=== PATIENT | female | born 1980 | race Caucasian/White ===

== ENCOUNTER 2018-04-17 04:04 | Emergency (ER) | payer OTHER ==
[2018-04-17] MEDS ORDERED: KETOROLAC 30 MG/ML INJ ONE (05:13)
[2018-04-17 05:37] LABS: Urine Bacteria <20 /HPF (<20); Urine Culture Reflex Order NOT NEEDED
[2018-04-17 05:39] LABS: Urine Blood 2+ (NEG); Urine Glucose NEGATIVE (NEG); Urine Protein NEGATIVE (NEG)
--- NOTE | 2018-04-17 06:39 | ER ---
Nurse's Notes [facility] Name: Amy Rodriguez Age: 37 yrs Sex: Female : 1980 Arrival Date: 04/17/2018 Time: 04:05 Bed 19 Private MD: Diagnosis: Cystitis Presentation: 04/17 04:23 Presenting complaint: Patient states: she was diagnosed with a UTI 2 days ago and was aa1 started on Macrobid but she is not feeling any better. C/O mid back pain and suprapubic pressure. Transition of care: patient was not received from another setting of care. Onset of symptoms was April 14, 2018. Risk Assessment: Do you want to hurt yourself or someone else? Patient reports no desire to harm self or others. Initial Sepsis Screen: Does the patient meet any 2 criteria? No. Patient's initial sepsis screen is negative. Does the patient have a suspected source of infection? No. Patient's initial sepsis screen is negative. Care prior to arrival: None. 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 - Social history:: Smoking status: Patient/guardian denies using tobacco. - Ebola Screening: : No symptoms or risks identified at this time. Screenin:26 Abuse screen: Denies threats or abuse. Denies injuries from another. Nutritional aa1 screening: No deficits noted. Tuberculosis screening: No symptoms or risk factors identified. Fall Risk None identified. Assessment: 04:26 General: Appears in no apparent distress. comfortable, Behavior is calm, cooperative, aa1 appropriate for age. Pain: Complains of pain in mid back area Pain currently is 4 out of 10 on a pain scale. Quality of pain is described as aching. Neuro: Level of Consciousness is awake, alert, obeys commands, Oriented to person, place, time, situation, Moves all extremities. Full function Gait is steady. Respiratory: Airway is patent Respiratory effort is even, unlabored, Respiratory pattern is regular, symmetrical. GI: No signs and/or symptoms were reported involving the gastrointestinal system. : Reports pain in suprapubic area. EENT: No signs and/or symptoms were reported regarding the EENT system. Derm: Skin is intact, is healthy with good turgor, Skin is pink, warm \T\ dry. Musculoskeletal: Circulation, motion, and sensation intact. Capillary refill < 3 seconds. 05:13 Reassessment: Patient appears in no apparent distress at this time. Patient and/or aa1 family updated on plan of care and expected duration. Pain level reassessed. Patient is alert, oriented x 3, equal unlabored respirations, skin warm/dry/pink. Awaiting CT results. 06:45 Reassessment: Patient appears in no apparent distress at this time. Patient is alert, aa1 oriented x 3, equal unlabored respirations, skin warm/dry/pink. Discussed d/c \T\ f/u instructions with pt; denies questions or concerns at this time Patient states feeling better. Vital Signs: 04:25 BP 108 / 69; Pulse 98; Resp 16; Temp 99.1; Pulse Ox 100% on R/A; Weight 74.84 kg; aa1 Height 5 ft. 4 in. (162.56 cm); Pain 4/10; 05:09 BP 111 / 76; Pulse 86; Resp 16; Pulse Ox 97% on R/A; aa1 06:45 BP 113 / 69; Pulse 88; Resp 16; Temp 98.9; Pulse Ox 98% on R/A; Pain 0/10; aa1 04:25 Body Mass Index 28.32 (74.84 kg, 162.56 cm) aa1 ED Course: 04:05 Patient arrived in ED. al2 04:14 Cesar Matthews MD is Attending Physician. gs 04:23 Liliana Mcleod RN is Primary Nurse. aa1 04:24 Triage completed. aa1 04:25 Arm band placed on right wrist. aa1 04:26 Patient has correct armband on for positive identification. Bed in low position. Call aa1 light in reach. Pulse ox on. NIBP on. 04:26 Urine collected: clean catch specimen. aa1 05:06 CT completed. Patient tolerated procedure well. Patient moved to CT via wheelchair. eh Patient moved back from CT. 06:25 CT Stone Protocol In Process Unspecified. EDMS 06:45 No provider procedures requiring assistance completed. Patient did not have IV access aa1 during this emergency room visit. Administered Medications: 05:08 Drug: TORadol 30 mg Route: IM; Site: left deltoid; aa1 06:44 Follow up: Response: No adverse reaction; Pain is decreased aa1 Outcome: 06:39 Discharge ordered by . 06:45 Discharged to home ambulatory. aa1 06:45 Condition: good 06:45 Discharge instructions given to patient, Instructed on discharge instructions, follow up and referral plans. medication usage, Demonstrated understanding of instructions, follow-up care, medications, Prescriptions given X 1. 06:46 Patient left the ED. aa1 Signatures: Dispatcher [employer] Liliana Sanchez, RN RN aa1 Jasper Galaviz Gregory, MD MD gs Love, Angelica al2
--- NOTE | 2018-04-17 06:40 | EDPHYS ---
Physician Documentation [facility] Name: Amy Rodriguez Age: 37 yrs Sex: Female : 1980 Arrival Date: 04/17/2018 Time: 04:05 Bed 19 Private MD: ED Physician Cesar Matthews HPI: 04/17 06:13 This 37 yrs old Female presents to ER via Ambulatory with complaints of gs Urinary Problem. 06:13 The patient complains of pain in the left low back and left mid back. The pain radiates gs to the right lower quadrant. Onset: The symptoms/episode began/occurred 3 day(s) ago. Associated signs and symptoms: Pertinent positives: dysuria, Pertinent negatives: fever. Severity of pain: At its worst the pain was moderate in the emergency department the pain has improved mildly. The patient has experienced similar episodes in the past, a few times. 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 - Social history:: Smoking status: Patient/guardian denies using tobacco. - Ebola Screening: : No symptoms or risks identified at this time. ROS: 06:13 All other systems are negative. gs Exam: 06:13 Head/Face: Normocephalic, atraumatic. Eyes: Pupils equal round and reactive to light, gs extra-ocular motions intact. Lids and lashes normal. Conjunctiva and sclera are non-icteric and not injected. Cornea within normal limits. Periorbital areas with no swelling, redness, or edema. ENT: Nares patent. No nasal discharge, no septal abnormalities noted. Tympanic membranes are normal and external auditory canals are clear. Oropharynx with no redness, swelling, or masses, exudates, or evidence of obstruction, uvula midline. Mucous membranes moist. Neck: Trachea midline, no thyromegaly or masses palpated, and no cervical lymphadenopathy. Supple, full range of motion without nuchal rigidity, or vertebral point tenderness. No Meningismus. Chest/axilla: Normal chest wall appearance and motion. Nontender with no deformity. No lesions are appreciated. Cardiovascular: Regular rate and rhythm with a normal S1 and S2. No gallops, murmurs, or rubs. Normal PMI, no JVD. No pulse deficits. Respiratory: Lungs have equal breath sounds bilaterally, clear to auscultation and percussion. No rales, rhonchi or wheezes noted. No increased work of breathing, no retractions or nasal flaring. Abdomen/GI: Soft, non-tender, with normal bowel sounds. No distension or tympany. No guarding or rebound. No evidence of tenderness throughout. Skin: Warm, dry with normal turgor. Normal color with no rashes, no lesions, and no evidence of cellulitis. MS/ Extremity: Pulses equal, no cyanosis. Neurovascular intact. Full, normal range of motion. Neuro: Awake and alert, GCS 15, oriented to person, place, time, and situation. Cranial nerves II-XII grossly intact. Motor strength 5/5 in all extremities. Sensory grossly intact. Cerebellar exam normal. Normal gait. 06:13 Constitutional: The patient appears alert, awake. 06:13 Back: CVA tenderness, that is mild, is noted on the left. Vital Signs: 04:25 BP 108 / 69; Pulse 98; Resp 16; Temp 99.1; Pulse Ox 100% on R/A; Weight 74.84 kg; aa1 Height 5 ft. 4 in. (162.56 cm); Pain 4/10; 05:09 BP 111 / 76; Pulse 86; Resp 16; Pulse Ox 97% on R/A; aa1 06:45 BP 113 / 69; Pulse 88; Resp 16; Temp 98.9; Pulse Ox 98% on R/A; Pain 0/10; aa1 04:25 Body Mass Index 28.32 (74.84 kg, 162.56 cm) aa1 MDM: 04:21 Patient medically screened. 06:13 Differential diagnosis: nephrolithiasis, pyelonephritis, UTI. Data reviewed: vital gs signs, nurses notes. Response to treatment: the patient's symptoms have markedly improved after treatment, and as a result, I will discharge patient. 06:37 Counseling: I had a detailed discussion with the patient and/or guardian regarding: the gs historical points, exam findings, and any diagnostic results supporting the discharge/admit diagnosis, lab results, radiology results, the need for outpatient follow up. 06:37 ED course: no vomiting no ab tenderness discussed with gabriela if no obstruction malrotation physiologic. 04/17 04:22 Order name: Urine Microscopic Only 04/17 04:39 Order name: Urine Dipstick--Ancillary (enter results) 4 04/17 04:39 Order name: Urine --Ancillary (enter results) [facility] 04/17 05:37 Order name: Urine Microscopic Only; Complete Time: 06:25 EDMS 04/17 05:39 Order name: Urine --Ancillary; Complete Time: 06:25 EDMS 04/17 05:39 Order name: Urine Dipstick-Ancillary; Complete Time: 06:25 EDOH 04/17 04:22 Order name: Urine Test (obtain specimen); Complete Time: 05:13 04/17 04:22 Order name: Urine Dipstick-Ancillary (obtain specimen); Complete Time: 05:13 04/17 04:22 Order name: CT Stone Protocol gs Administered Medications: 05:08 Drug: TORadol 30 mg Route: IM; Site: left deltoid; aa1 06:44 Follow up: Response: No adverse reaction; Pain is decreased aa1 Disposition: 04/17/18 06:39 Discharged to Home. Impression: Cystitis. - Condition is Stable. - Discharge Instructions: Urinary Tract Infection, Adult. - Prescriptions for Miralax 17 gram/dose Oral - take 1 packet by ORAL route once daily dilute powder in 8 ounces of water or juice; 1 bottle. - Medication Reconciliation Form, Thank You Letter, Antibiotic Education, Prescription Opioid Use form. - Follow up: Private Physician; When: 2 - 3 days; Reason: Re-evaluation by your physician. Signatures: [facility] Liliana Mcleod RN RN aa1 Cesar Matthews MD MD Corrections: (The following items were deleted from the chart) 06:46 06:39 04/17/2018 06:39 Discharged to Home. Impression: Cystitis. Condition is Stable. aa1 Forms are Medication Reconciliation Form, Thank You Letter, Antibiotic Education, Prescription Opioid Use. Follow up: Private Physician; When: 2 - 3 days; Reason: Re-evaluation by your physician. gs
[2018-04-17 07:05] VITALS: BP 113/69; TEMP 98.9; O2SAT 98
--- NOTE | 2018-04-17 08:28 | RAD REPORT ---
EXAM DESCRIPTION: CT - Stone Protocol - 04/17/2018 6:48 am CLINICAL HISTORY: Abdominal pain, history of recent UTI diagnosis with no symptom improvement on med ication, patient indicates suprapubic abdominal pain and back pain A preliminary report was provided at the time of the study and reviewed prior to final report. COMPARISON: CT imaging August 2011 TECHNIQUE: Axial 5 mm thick images were obtained without oral or IV contrast. The [id number] span s the entirety of the system partially obscuring uppermost abdomen and lung bases. All CT scans are performed using dose optimization technique as appropriate and may include automated exposure control or mA/KV adjustment according to patient size. FINDINGS: No hydronephrosis is present and no obstructing or nonobstructing calculi. No suspicious r enal masses. Isodense masses and pyelonephritis are not excluded on a stone protocol CT scan. No urin abel bladder suspicious finding. No uterus or right ovarian finding. At the left ovary/left adnexa there is a 4.5 centimeter heterogen eous mass. Attenuation is greater than fluid. Most commonly this would be a complex or hemorrhagic ov chad cyst. No associated free fluid. A solid left ovarian mass is not excluded. Follow-up pelvic ult rasound would be recommended for further characterization. No fallopian tube dilatation. Imaged portions of the liver, spleen and pancreas show no suspicious findings on non-contrast imaging . No gallbladder or biliary tree abnormality identified. No significant adrenal finding. No acute bowel findings. 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 No associated acute c omponent seen. Colonic stool volume is moderate. No hernia, mass or bulky lymphadenopathy noted. No free air, free fluid or inflammatory stranding. No significant bony abnormality. In IMPRESSION: Approximately 4.5 centimeter heterogeneous left ovarian or left adnexal mass. This is mo st commonly a hemorrhagic or complex ovarian cyst. Follow-up pelvic ultrasound would be recommended for further characterization. Congenital bowel malrotation variant. No acute component is seen though the colon does show moderatel y large stool volume throughout. No acute finding identifiable. Isodense masses and pyelonephritis are not excluded on stone protocol technique.
== END 2018-04-17 06:46 | disposition home or self-care (01) ==
LOC: ER 04:04
DX: N30.90 Cystitis, unspecified without hematuria (principal); Z98.82 Breast implant status
CPT/HCPCS: 74176; 76377; 81003; 81015; 81025; 96372; 99284

== ENCOUNTER 2020-01-24 07:05 | Emergency (ER) | payer OTHER ==
--- OUTSIDE RECORDS SUMMARY | 2020-01-24 07:06 | XMS REPORT | Continuity of Care Document ---
:1980 Author Organization [facility] t Address [address] [place] [address] Care Team Providers Name Role Phone Rao JANG Attending Clinician Elvin Gaitan MD Attending Clinician Problems This patient has no known problems. Allergies, Adverse Reactions, Alerts This patient has no known allergies or adverse reactions. Medications This patient has no known medications. Procedures This patient has no known procedures. Encounters Start End Encounter Admission Attending Care Care Encounter Source Date/Time Date/Time Type Type Clinicians Facility Department ID 2019-10-28 2019-10-28 Emergency River Yeh [facility] [id number] 00:12:38 01:52:00 Forrest Gaitan [place] [id number] [place] [id number] [place] [id number] Results This patient has no known results.
--- OUTSIDE RECORDS SUMMARY | 2020-01-24 07:07 | XMS REPORT | Summary of Care ---
:1980 Author Organization [facility] Address [address] [place] [id number] Care Team Providers Name Role Phone Pearl Gonzalez Primary Care Provider Reason for Referral Radiology Services (STAT) Status Reason Specialty Diagnoses / Referred By Referred To Procedures Contact Contact New Request Diagnostic Diagnoses Suspected Covid-19 Virus Infection Rao, Radiology Procedures XR CHEST 1 VW COVID XR CHEST 1 VW GRUPO HolmanP [address] [address] Reason for Visit Reason Comments Cough Fever Auth/Cert Status Reason Specialty Diagnoses / Referred By Referred To Procedures Contact Contact Emergency Medicine [facility] Em ergency Dept [address] [place] [phone] Fax: Encounter Details Date Type Department Care Team Description 10/28/2019 Emergency [facility]gency [place] Yeh, TIRE MECHANIC [address] [id number] Upper respiratory tract infection, unspe cified type (Primary Dx); Department Forrest Gaitan MD [address] [phone] Cough; [address] [place] [address] Dr banda Suspected Covid-19 Virus Inf ection; [place] [address] Close Exposure to Covid-19 V irus [phone] Allergies Active Allergy Reactions Severity Noted Date Comments Hydrocodone Itching 10/28/2019 documented as of this encounter (statuses as of 10/28/2019) Medications No known medicationsdocumented as of this encounter (statuses as of 10/28/2019) Active Problems No known active problemsdocumented as of this encounter (statuses as of 10/28/2019) Social History Tobacco Use Types Packs/Day Years Used Date Never Assessed Sex Assigned at Date Recorded Not on file Job Start Date Occupation Industry Not on file Not on file Not on file Travel History Travel Start Travel End No recent travel history available. COVID-19 Exposure Response Date Recorded In the last month, have you been in contact with Yes 10/28/2019 12:20 AM CDT someone who was confirmed or suspected to have Coronavirus / COVID-19? documented as of this encounter Last Filed Vital Signs Vital Sign Reading Time Taken Comments Blood Pressure 120/86 10/28/2019 1:00 AM CDT Pulse 95 10/28/2019 1:00 AM CDT Temperature 37.3 C (99.1 F) 10/28/2019 12:22 AM CDT Respiratory Rate 20 10/28/2019 1:00 AM CDT Oxygen Saturation 99% 10/28/2019 1:00 AM CDT Inhaled Oxygen Concentration - - Weight 77.1 kg (170 lb) 10/28/2019 12:21 AM CDT Height 162.6 cm (5' 4") 10/28/2019 12:21 AM CDT Body Mass Index 29.18 10/28/2019 12:21 AM CDT documented in this encounter Discharge Instructions Forrest Bar MD - 10/28/2019DIAGNOSIS 1. UPPER RESPIRATORY INFECTION. COVID TEST IS NEGATIVE NO LIFE-THREATENING FINDINGS ON TODAY'S EXAM. PROCEDURES IN THE ER TODAY: NONE MEDICATIONS ADMINISTERED IN THE ER TODAY: NONE YOUR PRESCRIPTIONS AND [id number] MEDICATION RECOMMENDATIONS: NO NEW MEDICATIONS SPECIAL CARE INSTRUCTIONS: SEE ATTACHMENTS FOLLOW-UP RECOMMENDATIONS: RECOMMEND FOLLOW-UP WITH A PRIMARY CARE PROVIDER IN A WEEK, ESPECIALLY IF NO IMPROVEMENT IN SYMPTOMS. TO FOLLOW-UP WITHIN THE [facility], TRY THESE OPTIONS (CLINIC APPOINTMENTS AVAILABLE ON [id number] BASIS): 1. SCHEDULE AN APPOINTMENT ONLINE AT [email or web address][email or web address] 2. OR CALL THE [facility] ACCESS C[facility] AT OR 3. OR CALL YOUR [facility] PHYSICIAN'S OFFICE DIRECTLY IF YOU ARE ALREADY AN ESTABLISHED [facility] PATIENT. RETURN TO ER FOR WORSENING OF SYMPTOMS. AttachmentsThe following attachments cannot be sent through Care Everywhere.URI, Viral, No Abx (Adult) (Angolan)documented in this encounter Plan of Treatment Name Type Priority Associated Diagnoses Date/Ti me XR CHEST 1 VW COVID IMAGING STAT Suspected Covid-19 Vi rian 10/28/2019 1:07 AM CDT Infection Name Type Priority Associated Diagnoses Order S chedule POCT TEST LAB [facility] Suspected Covid-19 Vi rian ONCE for 1 Occurrences Infection starting 2019 until 10/28/2019 Health Maintenance Due Date Last Done Comments DTaP,Tdap,and Td Vaccines ( - 1989 Tdap) Depression Screening 1990 PAP SMEAR 11/12/1999 Breast Cancer Screening 2018 (MAMMOGRAM) INFLUENZA VACCINE (Season Ended) 2020 PNEUMOCOCCAL 0-64 YEARS COMBINED Aged Out No longer eligible based on SERIES patient's age to complete this topic documented as of this encounter Procedures Procedure Name Priority Date/Time Associated Diagnosis Comme nts XR CHEST 1 VW COVID STAT 10/28/2019 1:07 AM CDT Suspected Covid-19 Virus Infection Procedure Note - Crispin Lazaro nt Results Inft User - 10/28/2019 1:42 AM CDT PROCEDURE: CHEST, SINGLE VIEW CLINICAL INDICATION: 38 year s Female presenting with covid 19 symptoms COMPARISON: Chest radiograph s None FINDINGS: Lungs: The lungs are clear. No focal consolidation, pleural effusion, or pneumothorax. Mediastinum: The cardiomedia stinal silhouette is normal in size. Osseous structures: No acute bony abnormality. IMPRESSION No acute intrathoracic abnor mality, specifically no radiographic findings to suggest COVID-19 pneumoni a. Disclaimer: Generally, the f indings on chest imaging in COVID-19 are not specific, and overlap with o ther infections, including influenza, H1N1, SARS and MERS. According to the Centers for Disease Control (CDC) and recent statement of the [employer], viral testing remains the only specific method of diagnosis. Confirm ation with the viral test is required, even if radiologic findings are sugg estive of COVID-[address]. Preliminary Report Dictated by Resident: Fco Bustos Ikwuagwu COVID-19 (ID NOW STAT 10/28/2019 12:34 AM Suspected Covid-1 9 Results for this RAPID TESTING) CDT Virus Infection procedure are in the results section. ASSIGNMENT OF Routine 10/28/2019 12:12 AM BENEFITS CDT NOTICE OF PRIVACY Routine 10/28/2019 12:12 AM PRACTICES CDT CONSENT/REFUSAL FOR Routine 10/28/2019 12:12 AM DIAGNOSIS AND CDT TREATMENT documented in this encounter Results COVID-19 (ID NOW RAPID TESTING) (10/28/2019 12:34 AM CDT) SARS-CoV-2 Rapid ID Not Detected Not Detected [facility] Specimen Swab - NASOPHARYNGEAL SWAB Narrative Performed At [facility] COVID-19 Assay is an isothermal nucleic [facility] acid amplification test intended for the qualitative detection of nucleic acid from SARS-CoV-2 viral RNA in nasopharyngeal (LABORER MINE) specimens. It is used under Emergency Use Authorization (EUA) by FDA. The limit of detection (LOD) of the assay is 125 Genome Equivalents/mL. A positive result is indicative of the presence of SARS-CoV-2 RNA. Clinical correlation with patient history and other diagnostic information is necessary to determine patient infection status. A negative (Not Detected) result does not preclude SARS-CoV-2 infection. In patients with clinical symptoms and other tests that are consistent with SARS-CoV-2 infection, negative results should be treated as presumptive negative and a new specimen should be tested with alternative PCR molecular test. Invalid: Please collect a new specimen for repeat patient testing if clinically indicated. Performing Organization Address City/State/Zipcode Phone Number [facility] CLIA: [id number], [address] [place], [place] [address] documented in this encounter Visit Diagnoses Diagnosis Upper respiratory tract infection, unspe cified type - Primary Cough Suspected Covid-19 Virus Infection Close Exposure to Covid-19 Virus documented in this encounter documented as of this encounter
[2020-01-24] MEDS ORDERED: LIDOCAINE 4% PATCH ONE (07:39)
[2020-01-24] MEDS ORDERED: KETOROLAC 30 MG/ML INJ ONE (07:39)
--- NOTE | 2020-01-24 08:49 | EDPHYS ---
Physician Documentation [facility] Name: Amy Rodriguez Age: 39 yrs Sex: Female : 1980 Arrival Date: 01/24/2020 Time: 07:06 Bed 5 Private MD: REGGIE Physician Zeke Cordero HPI: 01/23 07:42 This 39 yrs old Female presents to ER via Ambulatory with complaints of Back pm1 Pain. 07:42 The patient presents with pain that is acute. The symptoms are located in the low back. pm1 Onset: The symptoms/episode began/occurred yesterday. The pain radiates to the right leg and left leg. Associated signs and symptoms: Pertinent negatives: abdominal pain, chest pain, fever, headache, vomiting, weakness. The problem was sustained standing up after sleeping on the couch. Modifying factors: The patient symptoms are alleviated by remaining still, the patient symptoms are aggravated by movement. Severity of symptoms: in the emergency department the symptoms are actually worse. The patient has experienced a previous episode, approximately 2 months ago, and the symptoms today are exactly the same, improved with some help with a PT friend. Pain resolved for the past 1 month but returned yesterday. The patient has not recently seen a physician. Historical: - Allergies: 07:14 No Known Allergies; hb - Home Meds: 07:14 Macrobid Oral [Active]; hb - PSHx: 07:14 ; breast augmentation; Tubal ligation; hb - Immunization history:: Adult Immunizations up to date. - Social history:: Smoking status: Patient denies any tobacco usage or history of. ROS: 07:45 Constitutional: Negative for fever, chills, and weight loss, Neck: Negative for injury, pm1 pain, and swelling, Cardiovascular: Negative for chest pain, palpitations, and edema, Respiratory: Negative for shortness of breath, cough, wheezing, and pleuritic chest pain, Abdomen/GI: Negative for abdominal pain, nausea, vomiting, diarrhea, and constipation. 07:45 : Negative for injury, bleeding, discharge, and swelling, MS/Extremity: Negative for injury and deformity, Skin: Negative for injury, rash, and discoloration, Neuro: Negative for headache, weakness, numbness, tingling, and seizure. 07:45 Back: Positive for pain with movement, of the low back area. Exam: 07:45 Constitutional: This is a well developed, well nourished patient who is awake, alert, pm1 and in no acute distress. Head/Face: Normocephalic, atraumatic. 07:45 Skin: Warm, dry with normal turgor. Normal color with no rashes, no lesions, and no evidence of cellulitis. MS/ Extremity: Pulses equal, no cyanosis. Neurovascular intact. Full, normal range of motion. 07:45 Cardiovascular: Exam negative for acute changes, Rate: normal, Rhythm: regular, Pulses: no pulse deficits are appreciated. 07:45 Respiratory: Exam negative for acute changes, respiratory distress, shortness of breath. 07:45 Abdomen/GI: Exam negative for acute changes, Inspection: abdomen appears normal, Palpation: abdomen is soft and non-tender, in all quadrants. 07:45 Back: normal spinal alignment noted, vertebral tenderness, is not appreciated, muscle spasm, is appreciated in the left low back and right low back. 07:45 Neuro: Exam negative for acute changes, Orientation: is normal, Mentation: is normal, Motor: is normal, moves all fours, strength is 5/5 in all extremities, Sensation: is normal, no obvious gross deficits. Vital Signs: 07:16 BP 121 / 77; Pulse 80; Resp 15; Temp 98.8; Pulse Ox 99% on R/A; Weight 79.38 kg; Height ss 5 ft. 4 in. (162.56 cm); Pain 8/10; 07:16 Body Mass Index 30.04 (79.38 kg, 162.56 cm) MDM: 07:09 Patient medically screened. pm1 07:42 ED course: Discussed imaging options for the patient in the ER and need for MRI pm1 outpatient. Patient does not want to get imaging in the ER, she just wants medication for the pain. 07:47 Data reviewed: vital signs. Data interpreted: Pulse oximetry: on room air is 99 %. pm1 Interpretation: normal. 08:47 Counseling: I had a detailed discussion with the patient and/or guardian regarding: the pm1 historical points, exam findings, and any diagnostic results supporting the discharge/admit diagnosis, the need for outpatient follow up, a family practitioner, to return to the emergency department if symptoms worsen or persist or if there are any questions or concerns that arise at home. Administered Medications: 07:33 Drug: Lidoderm 5 % (700 mg/patch) 1 patches Route: Topical; Site: affected area; hb 07:33 Drug: TORadol 60 mg Route: IM; Site: right ventrogluteal; hb Disposition: 01/24/20 08:48 Discharged to Home. Impression: Low back pain. - Condition is Stable. - Discharge Instructions: Back Pain, Adult, Muscle Strain, Back Injury Prevention, [id number]. - Prescriptions for Tylenol- Codeine #3 300-30 mg Oral Tablet - take 2 tablets by ORAL route every 6 hours As needed; 20 tablet. Cyclobenzaprine 10 mg Oral Tablet - take 1 tablet by ORAL route every 8 hours As needed; 30 tablet. - Medication Reconciliation Form, Thank You Letter, Antibiotic Education, Prescription Opioid Use form. - Follow up: Emergency Department; When: As needed; Reason: Worsening of condition. Follow up: Private Physician; When: 2 - 3 days; Reason: Recheck today's complaints, Continuance of care, Re-evaluation by your physician. - Problem is new. - Symptoms have improved. - Notes: Lidocaine transdermal patches are available on the counter Addendum: 01/25/2020 10:54 Co-signature as Attending Physician, Zeke Cordero MD I agree with the assessment and c leong plan of care. Signatures: Zeke Cordero MD MD cha Smirch, Shelby, RN RN Abelardo Waller, ANDRZEJ [employer] SERVICE TECHNICIAN pm1 Ela Rivero RN RN Corrections: (The following items were deleted from the chart) 01/23 09:11 08:48 01/24/2020 08:48 Discharged to Home. Impression: Low back pain. Condition is ss Stable. Forms are Medication Reconciliation Form, Thank You Letter, Antibiotic Education, Prescription Opioid Use. Follow up: Emergency Department; When: As needed; Reason: Worsening of condition. Follow up: Private Physician; When: 2 - 3 days; Reason: Recheck today's complaints, Continuance of care, Re-evaluation by your physician. Problem is new. Symptoms have improved. pm1
--- NOTE | 2020-01-24 08:49 | ER ---
Nurse's Notes [facility] Name: Amy Rodriguez Age: 39 yrs Sex: Female : 1980 Arrival Date: 01/24/2020 Time: 07:06 Bed 5 Private MD: Diagnosis: Low back pain Presentation: 01/23 07:14 Coronavirus screen: At this time, the client does not indicate any symptoms associated hb with coronavirus-19. Ebola Screen: No symptoms or risks identified at this time. Initial Sepsis Screen: Does the patient meet any 2 criteria? No. Patient's initial sepsis screen is negative. Does the patient have a suspected source of infection? No. Patient's initial sepsis screen is negative. Risk Assessment: Do you want to hurt yourself or someone else? Patient reports no desire to harm self or others. 07:14 Method Of Arrival: Ambulatory hb 07:16 Chief complaint: Patient states: low back pain that began yesterday after sitting up ss from the couch. Pt reports that November 13 weekend she was at a restaurant and sat up from a chair and had the same pain for 6 weeks, but had been pain free for a month until yesterday. Onset of symptoms was January 23, 2020. 07:16 Acuity: DEWEY 4 ss Historical: - Allergies: 07:14 No Known Allergies; hb - Home Meds: 07:14 Macrobid Oral [Active]; hb - PSHx: 07:14 ; breast augmentation; Tubal ligation; hb - Immunization history:: Adult Immunizations up to date. - Social history:: Smoking status: Patient denies any tobacco usage or history of. Screenin:14 Abuse screen: Denies threats or abuse. Denies injuries from another. Nutritional hb screening: No deficits noted. Tuberculosis screening: No symptoms or risk factors identified. Fall Risk None identified. Assessment: 07:16 General: Appears in no apparent distress. Behavior is calm, cooperative. Pain: hb Complains of pain in low back Pain currently is 8 out of 10 on a pain scale. Neuro: Level of Consciousness is awake, alert, obeys commands, Oriented to person, place, time, situation. Cardiovascular: Capillary refill < 3 seconds Patient's skin is warm and dry. Respiratory: Respiratory effort is even, unlabored, Respiratory pattern is regular, symmetrical. GI: No signs and/or symptoms were reported involving the gastrointestinal system. : No signs and/or symptoms were reported regarding the genitourinary system. EENT: No signs and/or symptoms were reported regarding the EENT system. Derm: Skin is pink, warm \T\ dry. Musculoskeletal: Reports low back pain. Vital Signs: 07:16 BP 121 / 77; Pulse 80; Resp 15; Temp 98.8; Pulse Ox 99% on R/A; Weight 79.38 kg; Height ss 5 ft. 4 in. (162.56 cm); Pain 8/10; 07:16 Body Mass Index 30.04 (79.38 kg, 162.56 cm) ED Course: 07:06 Patient arrived in ED. bp1 07:09 Abelardo Waller NP is PHCP. pm1 07:14 Patient has correct armband on for positive identification. Bed in low position. Call light in reach. 07:15 Ela Rivero RN is Primary Nurse. hb 07:15 Arm band placed on. hb 07:19 Triage completed. ss 08:49 Zeke Cordero MD is Attending Physician. pm1 09:10 No provider procedures requiring assistance completed. Patient did not have IV access ss during this emergency room visit. Administered Medications: 07:33 Drug: Lidoderm 5 % (700 mg/patch) 1 patches Route: Topical; Site: affected area; hb 07:33 Drug: TORadol 60 mg Route: IM; Site: right ventrogluteal; hb Outcome: 08:48 Discharge ordered by MD. pm1 09:10 Discharged to home ambulatory. ss 09:10 Condition: improved 09:10 Discharge instructions given to patient, Instructed on discharge instructions, follow up and referral plans. medication usage, Demonstrated understanding of instructions, follow-up care, medications, Prescriptions given X 2. 09:11 Patient left the ED. Signatures: Jerri Banks RN RN Abelardo Waller NP CAR HIKER pm1 Ela Rivero RN RN Mey Luna bp1
[2020-01-24 09:16] VITALS: BP 121/77; TEMP 98.8; O2SAT 99
== END 2020-01-24 09:11 | disposition home or self-care (01) ==
LOC: ER 07:05
DX: M54.5 Low back pain (principal); Z98.82 Breast implant status
CPT/HCPCS: 96372; 99283